=== PATIENT | female | born 1985 | race Caucasian/White ===

== ENCOUNTER → 2016-09-16 | Outpatient (CLI) | payer BC ==
[~2016-09-16] MED LIST: MTR600X PO; PRENTAB26 PO
== END | disposition home or self-care (01) ==
LOC: C.PAPS 08:41
PROVIDERS: ATTEND Obstetrics & Gynecology
DX: Z01.419 Encounter for gynecological examination (general) (routine) without abnormal findings (principal)

== ENCOUNTER → 2017-03-08 | Outpatient (CLI) | payer BC ==
[2017-03-08 18:30] LABS: THYROID STIMULATING HORMONE 1.47 uIu/ml (0.300-4.500)
== END | disposition home or self-care (01) ==
LOC: C.LABMFLN 15:42
PROVIDERS: ATTEND Physician Assistant
DX: E05.90 Thyrotoxicosis, unspecified without thyrotoxic crisis or storm (principal)

== ENCOUNTER → 2017-09-23 | Outpatient (CLI) | payer BC | END | disposition home or self-care (01) | LOC: C.PAPS 10:15 | PROVIDERS: ATTEND Physician Assistant | DX: Z01.419 Encounter for gynecological examination (general) (routine) without abnormal findings (principal) ==

== ENCOUNTER 2020-02-14 11:26 | Inpatient (IN) ==
[2020-02-15] MEDS ORDERED: OXYTOCIN 30 UNITS/500 ML BAG IV PRN ×3 (12:05→20:27)
--- NOTE | 2020-02-15 12:24 | History & Physical Report ---
Date of Service February 15, 2020 Assessment & Plan (1) Prolonged , antepartum: Nichelle Hurt is a 34 y/o who presents for induction of labor for postdates . AMA. O positive. Ab negative. rubella immune. GBS neg. COVID neg 02/06/20 Induction of labor - benign course, category 1 tracing, reassuring. advanced maternal age (34) - vitals reviewed, stable. Labs reviewed, CBC wnl. - 1 hour glucola (132H) on 11/09/19, but passed 2 hour glucosa (126) on 12/14/19. No GIDM. plan: LR 125 mL/hr. Induction via pitocin Hx of thyroid nodules - per patient last neck ultrasound 2-3 years ago, stable - asymptomatic, no hx of requiring thyroid medications - last TSH was 1.36 (wnl) on 01/30/19 Advanced maternal age (34) - declined genetic screening Admission and Anticipated Discharge Date Admission Date: February 15, 2020 History of Present Illness Primary Care Provider: Inderjit Tripathi DO Nichelle Hurt is a 34 y/o female currently at 40w6d WGA with an VICENTE 02/08/20 as determined by (ultrasound#1) who is here for (scheduled induction for postdates ). Her was complicated by advanced maternal age but no other problems. No pain. Occasional mild constipation. No F/C, N/V, CP/SOB. + contractions; + movement; - fluid loss; - bloody show Hx of eczema and thyroid nodules. Denies current problems with those conditions and has not needed prescription medications for them. No hx of depression. Denies hx of HTN or DM. Multiple reactive NSTs in the past month. 02/05 most recent covid test, negative. Denies cough, sore throat, loss of taste/smell, diarrhea. Had regular appointments with OB. Labs: 07/03/19 Blood type: O positive Antibody screen: negative H.8 (today) Hct: 39.5 (today) WBC: 10.13 (today) Plt: 143 (today) Rubella: immune VDRL/RPR: nonreactive Gonorrhea: not detected Chlamydia: not detected HIV: neg HbSAg: neg GBS: neg covid testing: negative on 02/06/20 1 hour glucola (132H) on 11/09/19, but passed 2 hour glucosa (126) on 12/14/19 Other screens: declined genetics/cf/sma Allergies Allergy/AdvReac Type Severity Reaction Status Date / Time Bactrim Allergy Mild HIVES Verified 12/30/15 09:54 codeine Allergy Mild GI SYMPTOMS Verified 02/15/20 13:20 Sulfa (Sulfonamide Allergy Mild RASH Verified 02/15/20 13:20 Antibiotics) sulfamethoxazole Allergy Mild HIVES Verified 02/15/20 13:20 trimethoprim Allergy Mild HIVES Verified 02/15/20 13:20 Home Medications Home Medications Medication Instructions Recorded Confirmed Type prenat.vits,cynthia,[id number] 1 tab PO DAILY 02/23/19 02/15/20 History Patient History Medical History (Updated 02/15/20 @ 14:05 by Tawanda Sahni MD) Abnormal menses Amenorrhea Encounter for anatomic survey History of varicella Irregular menstrual cycle Leakage, amniotic fluid Post term , 41 weeks Surgical History H/O adenoidectomy H/O oral surgery Hx of LASIK S/P LEEP of cervix Family History (Updated 02/15/20 @ 13:20 by Tawanda Sahni MD) Mother Diabetes Hypothyroidism Dyslipidemia Father Dyslipidemia Hypothyroidism Heart disease Social History Smoking Status: Never smoker Hx Alcohol Use: No Hx Substance Use: No Preferred Language: Turkmen Communication Ability: Effective Beliefs That Will Affect Care: None marital status: marital status details: Keny Hurt (34) [phone] Current Living Situation: Family Current Living Situation Comment: and 2 children current occupational status: employed current occupation: RN- [employer] Feels Safe at Home: Yes Safety Concerns: Feels Safe At This Time Review of Systems Denies fever, chills, sweats Denies shortness of breath, difficulty breathing, chest pain, palpitations. Denies breast pain. Denies dysuria. Denies headache or changes in vision. Denies nausea/vomiting. Denies numbness, tingling, weakness. Physical Exam Physical Exam: General: Alert, oriented. No acute distress. Cardiac: Regular rate and rhythm, no murmurs/rubs/gallops. Radial pulses 2+ bilaterally. Respiratory: Clear to auscultation bilaterally, no wheezes/rales/rhonchi. No increased work of breathing. No respiratory distress. Abdomen: Gravid; +FHTs Pelvic: Dilation 4 cm; Effacement 70-80%; Station -2. posterior, soft. per Dr. Ortiz. Lower Extremities: No lower extremity edema or swelling. No deep calf pain. Randal's negative bilaterally. Results & Data ([facility]) Vital Signs (Past 12 Hours) Vital Signs Temp Pulse Resp BP 02/15/20 12:07 37.1 C 80 20 124/79 Monitoring External Monitor External FHT at 1300: Category 1 tracing; moderate FHT variability. Baseline 135 bpm. +accelerations. No decelerations. Contractions every 7-8 minutes. Supervising Physician Co-Signing Physician Notes Patient evaluated with resident and agree with the above findings and plan Resident Activity Tracking Resident Involvement: Resident Care Provided Care Provided: OB Delivery
[2020-02-15 12:32] LABS: Hematocrit (blood only) 39.5 % (37-47); Hemoglobin 13.8 g/dL (12.0-16.0); Mean Corpuscular Hemoglobin 30.8 pg (25-34); Mean Corpuscular Volume 88.2 fL (80-100); Mean Platelet Volume 12.4 fL (7.4-10.4); Platelet Count 143 K/uL (130-400); RDW Coefficient of Variation 14.2 % (11.5-14.5); RDW Standard Deviation 45.8 fL (36.4-46.3); Red Blood Count 4.48 M/uL (4.2-5.4); White Blood Count 10.13 K/uL (4.8-10.8)
[2020-02-15 12:48] LABS: Mean Corpuscular Hgb Conc 34.9 g/dL (32-36)
[2020-02-15] MEDS: LACTATED RINGER'S 1,000 ML IV PRN ×2 (13:03→18:09)
--- NOTE | 2020-02-15 15:30 | Labor Progress Brief Note ---
Date of Service February 15, 2020 Subjective Reason For Note: Routine Evaluation Assessment & Plan (1) Prolonged , antepartum: Nichelle Hurt is a 34 y/o who presents for induction of labor for postdates . AMA. O positive. Ab negative. rubella immune. GBS neg. COVID neg 02/06/20 Induction of labor - benign course, category 1 tracing, reassuring. advanced maternal age (34) - vitals reviewed, stable. Labs reviewed, CBC wnl. - 1 hour glucola (132H) on 11/09/19, but passed 2 hour glucosa (126) on 12/14/19. No GIDM. - AROM at 1525. clear fluid. plan: LR 125 mL/hr. Continue induction via pitocin Hx of thyroid nodules - per patient last neck ultrasound 2-3 years ago, stable - asymptomatic, no hx of requiring thyroid medications - last TSH was 1.36 (wnl) on 01/30/19 Advanced maternal age (34) - declined genetic screening Admission and Anticipated Discharge Date Admission Date: February 15, 2020 Physical Exam Genitourinary: Manual OB Exam: + amniotic fluid clear OB Exam Monitor Tracing: + external FHT monitor used, + external uterine monitor used and + category I 1525: 3-4 cm dilated. 75% effaced. station -2. Results & Data ([facility]) Vital Signs (Past 12 Hours) Vital Signs Temp Pulse Resp BP 02/15/20 15:19 75 134/83 02/15/20 14:21 73 128/80 02/15/20 13:11 76 120/83 02/15/20 12:07 37.1 C 80 20 124/79 Supervising Physician Co-Signing Physician Notes Patient evaluated with resident and agree with the above findings and plan
[2020-02-15] MEDS ORDERED: ePHEDrine sulfate 50 MG/ML AMP ONE (17:27)
[2020-02-15] MEDS ORDERED: BUPIVACAINE 0.25% 30 ML VIAL ONE (17:27)
[2020-02-15] MEDS ORDERED: fentaNYL citrate 100 MCG/2 ML VIAL ONE (17:27)
[2020-02-15] MEDS ORDERED: fentaNYL 2MCG/ML ROPIV 1.25MG/ML 100 ML BAG EPI ONE (17:27)
--- NOTE | 2020-02-15 18:13 | Anesthesiology Consultation ---
Date of Service February 15, 2020 Assessment & Plan Chart Review Chart Review: Acceptable Risk for Labor Epidural Consults Requested none History Height/Weight Height: 5 ft 2 in Weight: 72.575 kg Allergies Allergy/AdvReac Type Severity Reaction Status Date / Time Bactrim Allergy Mild HIVES Verified 12/30/15 09:54 codeine Allergy Mild GI SYMPTOMS Verified 02/15/20 13:20 Sulfa (Sulfonamide Allergy Mild RASH Verified 02/15/20 13:20 Antibiotics) sulfamethoxazole Allergy Mild HIVES Verified 02/15/20 13:20 trimethoprim Allergy Mild HIVES Verified 02/15/20 13:20 Medications Home Medications Medication Instructions Recorded Confirmed Last Taken prenat.vits,cynthia,[id number] 1 tab PO DAILY 02/23/19 02/15/20 02/15/20 08:00 Active Medications Generic Name Dose Route Start Last Admin Trade Name Freq PRN Reason Stop Dose Admin Lactated Ringer's 1,000 mls @ 125 mls/hr 02/15/20 12:05 02/15/20 18:09 Lr IV 02/17/20 12:04 125 mls/hr .Q8H PRN Administration L&D Protocol Protocol Oxytocin 30 units in 500 mls @ 9 mls/hr 02/15/20 12:05 02/15/20 15:15 Pitocin IV 02/17/20 12:04 0.54 units/hr .Q24H PRN 9 mls/hr Labor Induction/Augmentation Titration Protocol 0.54 UNITS/HR Past Medical History Medical History Abnormal menses Amenorrhea Encounter for anatomic survey History of varicella Irregular menstrual cycle Leakage, amniotic fluid Post term , 41 weeks Past Family History Family History Mother Diabetes Hypothyroidism Dyslipidemia Father Dyslipidemia Hypothyroidism Heart disease Past Surgical History Surgical History H/O adenoidectomy H/O oral surgery Hx of LASIK S/P LEEP of cervix Social History Smoking Status: Never smoker Hx Alcohol Use: No Hx Substance Use: No Physical Exam Vital Signs Last Vital Signs Temp 36.9 C 02/15/20 15:19 Pulse 75 02/15/20 18:11 Resp 18 02/15/20 17:30 BP 116/73 02/15/20 18:11 Pulse Ox 97 02/15/20 18:10 Testing Laboratory Results 02/15/20 12:15
[2020-02-15] MEDS ORDERED: NALOXONE HCL 0.4 MG/1 ML VIAL/CARP IV PRN (18:14)
[2020-02-15] MEDS ORDERED: ePHEDrine sulfate 50 MG/ML AMP IV PRN (18:14)
[2020-02-15] MEDS ORDERED: NALOXONE HCL 1 MG in SODIUM CHLORIDE 0.9% 1000ML 1,000 ML IV PRN (18:14)
[2020-02-15] MEDS ORDERED: DiphenhydrAMINE HCL 50 MG/ML VIAL IV PRN (18:14)
[2020-02-15] MEDS ORDERED: fentaNYL 2MCG/ML ROPIV 1.25MG/ML 100 ML BAG EPI PRN (18:14)
[2020-02-15] MEDS ORDERED: DIPHTHERIA/TETANUS/PERTUSSIS 0.5 ML SYR/VIAL IM ONE (20:27)
[2020-02-15] MEDS ORDERED: SUPERCREAM 0.870% 15 GM JAR EXT PRN (20:27)
[2020-02-15] MEDS ORDERED: HYDROCORTISONE ACETATE 25 MG SUPP PR PRN (20:27)
[2020-02-15] MEDS ORDERED: ACETAMINOPHEN 325 MG TAB PO PRN (20:27)
[2020-02-15] MEDS ORDERED: bisacodyL 10 MG SUPP PR PRN (20:27)
[2020-02-15] MEDS ORDERED: BENZOCAINE 20% AER SPR 82.5 GM CAN EXT PRN (20:27)
--- NOTE | 2020-02-15 21:01 | Anesthesia Procedure Note ---
Date of Service February 15, 2020 Anesthesia Post Epidural Note Vital Signs Vital Signs: Temp Pulse Resp BP Pulse Ox 36.5 C 68 18 114/73 96 02/15/20 18:15 02/15/20 20:59 02/15/20 20:29 02/15/20 20:59 02/15/20 19:57 Notes Mental Status: alert / awake / arousable Nausea / Vomiting: adequately controlled Pain: adequately controlled Airway Patency, RR, SpO2: stable & adequate BP & HR: stable & adequate Hydration State: stable & adequate Neuraxial Anesthesia: was administered and sensory block is resolving Anesthetic Complications: no major complications apparent and Pt Satisfied with anesthetic care Epidural: Removed without complications and With tip intact
[2020-02-15] MEDS: DOCUSATE SODIUM 100 MG CAP PO SCH (21:48)
--- NOTE | 2020-02-16 | Delivery Summary ---
DATE OF OPERATION: 02/15/2020 PROCEDURE: Normal spontaneous vaginal delivery. SURGEON: Reid Wiggins MD PREOPERATIVE DIAGNOSES: 1. Single intrauterine at 41 weeks 0 days gestational age. 2. Advanced maternal age. POSTOPERATIVE DIAGNOSES: 1. Single intrauterine at 41 weeks 0 days gestational age. 2. Advanced maternal age. 3. Status post procedure. ESTIMATED BLOOD LOSS: 200 mL. DRAINS: Ferrell catheter for 200 mL of clear urine. COMPLICATIONS: None. FINDINGS: Viable male with weight pending and Apgars of 8 and 9 at 1 and 5 minutes respectively. HOSPITAL COURSE: The patient is a 34-year-old G3, P2-0-0-2, admitted at 41 weeks 0 days gestational age for late term induction of labor. The patient was noted to be 3-4 cm at the time of admission and was started on oxytocin per regular protocol. She several hours later underwent artificial rupture of membranes for clear fluid. From there, she progressed in labor to complete-complete +2 station and felt the urge to push. The patient did receive an epidural for anesthesia. The patient pushed for approximately 2 contractions to achieve delivery. DESCRIPTION OF PROCEDURE: The patient progressed to 10 cm dilated, 100% effaced, +2 station, pushed over intact perineum with epidural anesthesia and delivered a viable male infant with weight and Apgars as noted above. Head of the delivered in RAFFI position, rest to left transverse. No nuchal cord was noted. Body and shoulders quickly followed. was noted to be vigorous upon delivery and 1-minute delayed cord clamping was initiated. Cord was double clamped and cut. remained on maternal abdomen. Cord blood was obtained. Attention was then turned to deliver the placenta, which was delivered intact, 3-vessel cord, gentle cord traction. On inspection of perineum, vagina, and cervix was notable for no lacerations. Sponge and instrument counts were correct at the completion of the case. Both mother and were stable in the immediate post-delivery period. I attest to the content of the Intraoperative Record and any orders documented therein. Any exception s are noted below.
[2020-02-16] MEDS: IBUPROFEN 600 MG TAB PO PRN ×2 (05:37→16:48)
[2020-02-16 06:02] LABS: Hematocrit (blood only) 40.7 % (37-47); Hemoglobin 13.9 g/dL (12.0-16.0)
--- NOTE | 2020-02-16 06:40 | Obstetrical Progress Note ---
Date of Service <Tawanda Sahni MD - Last Filed: 02/16/20 07:23> February 16, 2020 Assessment & Plan <Tawanda Sahni MD - Last Filed: 02/16/20 07:23> (1) Prolonged , antepartum: Nichelle Hurt is a 34 y/o who is PPD2 s/p induced at 41w0d. AMA. O positive. Ab negative. rubella immune. GBS neg. COVID neg 02/06/20 s/p - vitals stable. labs: H/H stable. 13.9/40.7. - patient doing well. plan: routine care. encourage ambulation. possible dispo after 24 hrs after Hx of thyroid nodules - per patient last neck ultrasound 2-3 years ago, stable - asymptomatic, no hx of requiring thyroid medications - last TSH was 1.36 (wnl) on 01/30/19 Advanced maternal age (34) - declined genetic screening Subjective <Tawanda Sahni MD - Last Filed: 02/16/20 07:23> No pain. ibuprofen 600 x 1, good relief all ros neg Eating, voiding ok. + amb. . Lochia moderate. -flatus or bm. Patient is fine w/ either today or tomorrow dispo. Review of Systems Denies fever, chills, sweats Denies shortness of breath, difficulty breathing, chest pain, palpitations, chest pressure. Denies breast pain. Denies dysuria. Denies headache or changes in vision. Denies nausea/vomiting. Denies numbness, tingling, weakness. Physical Exam <Tawanda Sahni MD - Last Filed: 02/16/20 07:23> General: Alert, oriented. No acute distress. Cardiac: Regular rate and rhythm, no murmurs/rubs/gallops. Respiratory: Clear to auscultation anterior and posteriorly, no wheezes/rales/rhonchi. No increased work of breathing. Symmetrical chest rise. No respiratory distress. Abdomen: Soft, nontender, nondistended. Bowel sounds present. Uterus: Uterine fundus firm, palpable at umbilicus. Lower Extremities: No lower extremity edema or swelling. No deep calf pain. Randal's negative bilaterally. Results & Data ([facility]) <Tawanda Sahni MD - Last Filed: 02/16/20 07:23> Vital Signs (Past 12 Hours) Vital Signs Temp Pulse Pulse Resp BP BP Pulse Ox 02/16/20 03:45 36.8 C 78 18 111/70 02/15/20 23:05 36.9 C 75 18 116/72 02/15/20 21:59 79 18 106/65 02/15/20 21:44 75 105/67 02/15/20 21:30 18 02/15/20 21:29 81 115/70 02/15/20 21:14 73 115/75 02/15/20 20:59 68 18 114/73 02/15/20 20:44 75 18 118/75 02/15/20 20:29 78 18 117/67 02/15/20 20:14 91 H 18 131/70 02/15/20 19:59 96 H 18 122/84 02/15/20 19:57 82 96 02/15/20 19:52 77 96 02/15/20 19:47 77 96 02/15/20 19:45 91 H 18 89 L 02/15/20 19:42 81 100 02/15/20 19:39 86 91 02/15/20 19:36 81 99 02/15/20 19:34 77 93 02/15/20 19:31 77 100 02/15/20 19:30 82 18 142/87 H 02/15/20 19:26 76 95 02/15/20 19:20 68 100 02/15/20 19:15 67 137/71 100 02/15/20 19:12 72 92 02/15/20 19:10 65 100 02/15/20 19:05 67 99 02/15/20 19:00 63 18 100 02/15/20 18:59 61 119/72 02/15/20 18:55 67 100 02/15/20 18:50 64 100 02/15/20 18:45 63 100 02/15/20 18:41 60 118/68 <Reid Wiggins MD - Last Filed: 02/16/20 08:56> Co-Signing Physician Notes Patient seen and evaluated with resident and agree with the above findings and plan. Routine care. Stable for discharge late afternoon today
[2020-02-16] MEDS: PRENATAL VITAMIN 1 TAB PO SCH (08:20)
[2020-02-16] MEDS: DOCUSATE SODIUM 100 MG CAP PO SCH ×2 (08:20→21:07)
[2020-02-16] MEDS ORDERED: bisacodyL 5 MG TABEC PO SCH (20:00)
[2020-02-17] MEDS: IBUPROFEN 600 MG TAB PO PRN (06:28)
[2020-02-17] MEDS: PRENATAL VITAMIN 1 TAB PO SCH (07:39)
[2020-02-17] MEDS: DOCUSATE SODIUM 100 MG CAP PO SCH (07:39)
--- NOTE | 2020-02-17 09:19 | Obstetrical Progress Note ---
Date of Service February 17, 2020 Assessment & Plan (1) Encounter for care and examination after delivery: satisfactory exam D/C to home Day #:: 1 Subjective Ambulation: ambulating normally Voiding: no voiding problems Passing Gas:: Yes Diet Tolerance:: regular diet Lochia:: Small Feeding Type:: breast feeding Physical Exam Constitutional WD/WN, vitals as above Psychiatric A+Ox3, euthymic affect Genitourinary OB Exam Abdomen: + fundal height (at U) Fundus: + firm and + relation to umbilicus Results & Data ([facility]) Vital Signs (Past 12 Hours) Vital Signs Temp Pulse Resp BP 02/17/20 07:45 98.1 F 82 16 114/78 02/16/20 23:20 98.6 F 75 18 111/73
== END 2020-02-17 11:33 | disposition home or self-care (01) | DRG 807 ==
LOC: 4S1 02-15 12:02 → 4S2 02-15 22:44